=== PATIENT | female | born 1995 ===

== ENCOUNTER 2022-01-20 11:33 | Outpatient (CLI) | payer OTHER | END 2022-01-20 13:00 | disposition home or self-care (01) | LOC: PRENATAL 11:33 | PROVIDERS: ATTEND Obstetrics & Gynecology Maternal & Fetal Medicine | DX: Z34.82 Encounter for supervision of other normal pregnancy, second trimester (principal) ==

== ENCOUNTER 2022-01-28 12:34 | Outpatient (CLI) | payer OTHER | END 2022-01-28 13:47 | disposition home or self-care (01) | LOC: PRENATAL 12:34 | PROVIDERS: ATTEND Obstetrics & Gynecology Maternal & Fetal Medicine | DX: O35.0XX0 Maternal care for (suspected) central nervous system malformation in fetus, not applicable or unspecified (principal); O35.3XX0 Maternal care for (suspected) damage to fetus from viral disease in mother, not applicable or unspecified; Z3A.26 26 weeks gestation of pregnancy ==